=== PATIENT | male | born 1935 | race Asian ===

== ENCOUNTER 2022-10-15 09:33 | Outpatient (CLI) | payer MEDICARE, BC ==
[2022-10-15 11:13] LABS: #Monocytes 0.4 10x3/uL (0.0-1.1); #Neutrophils 5.6 10x3/uL (1.5-8.4); %Basophils 0.4 % (0.0-2.0); %Eosinophils 0.2 % (0.0-6.0); %Lymphocytes 27.3 % (18.0-47.0); %Monocytes 4.3 % (0.0-10.0); %Neutrophils 67.6 % (40.0-75.0); Hemoglobin 14.3 g/dL (13.5-17.5); Mean Corpuscular HGB CONC 33.3 g/dL (32.0-36.0); Mean Corpuscular Hemoglobin 31.2 pg (27.0-33.0); Mean Corpuscular Volume 93.7 fl (81.2-95.1); Mean Platelet Volume 8.8 fl (7.4-10.4); Platelet Count 214 10x3/uL (150-450); RBC Distribution Width 12.4 % (11.5-14.5); Red Blood Cell (RBC) Count 4.58 10x6/uL (4.32-5.72); White Blood Cell (WBC) Count 8.3 10x3/uL (3.5-10.5)
[2022-10-15 11:26] LABS: ALT (SGPT) 81 U/L (8-55); AST (SGOT) 41 U/L (5-34); Albumin 4.8 g/dL (3.4-4.8); Alkaline Phosphatase 56 U/L (40-110); Anion Gap 16 mmol/L (10-20); BUN (Urea Nitrogen) 17 mg/dL (8.4-25.7); Bilirubin, Total 1.3 mg/dL (0.2-1.2); Calc. Creatinine Clearance 0 mL/min (70-130); Calcium 9.6 mg/dL (7.8-10.44); Carbon Dioxide 24 mmol/L (23-31); Cardiac Risk 2.4 (Less than 4.5); Chloride 100 mmol/L (98-107); Cholesterol 174 mg/dl (< 200 Desired); Estimated GFR 69; Globulin 2.8 g/dL (2.4-3.5); Glucose 121 mg/dL (83-110); HDL Cholesterol 72 mg/dL (>60 Neg Risk); LDL Cholesterol, Calculated 89 mg/dL; Magnesium 2.2 mg/dL (1.6-2.6); Potassium 4.7 mmol/L (3.5-5.1); Protein, Total 7.6 g/dL (5.8-8.1); Sodium 135 mmol/L (136-145); Triglycerides 63 mg/dL (Less than 150)
[2022-10-15 14:14] LABS: Hemoglobin A1c 6.2 % (4.0-6.0)
== END 2022-10-15 09:34 | disposition home or self-care (01) ==
LOC: CSHLAB 09:33
PROVIDERS: ATTEND Surgery
DX: Z01.812 Encounter for preprocedural laboratory examination (principal); K40.90 Unilateral inguinal hernia, without obstruction or gangrene, not specified as recurrent; I25.10 Atherosclerotic heart disease of native coronary artery without angina pectoris
CPT/HCPCS: 80053; 80061; 82306; 83036; 83735; 84443; 85025

== ENCOUNTER 2022-10-16 05:50 | Day surgery (SDC) | payer MEDICARE, BC ==
[2022-10-14 15:16] VITALS: BMI 22.6
[2022-10-16] MEDS ORDERED: Bupivacaine HCl 0.5%/Epinephrine 1:200,000/PF 30 ml Vial ONE (06:52)
[2022-10-16] MEDS ORDERED: Rocuronium Bromide 10 MG/ML (10ML VIAL) ONE (07:08)
[2022-10-16] MEDS ORDERED: PROPOFOL 20 ML ONE (07:08)
[2022-10-16] MEDS ORDERED: Ondansetron PF 4 MG/2 ML Vial ONE (07:08)
[2022-10-16] MEDS ORDERED: Lidocaine 1% PF 5 ML VIAL ONE (07:08)
[2022-10-16] MEDS ORDERED: Fentanyl 100 MCG/2 ML VIAL ONE (07:08)
[2022-10-16] MEDS ORDERED: CEFAZOLIN 2 GM VIAL ONE (07:18)
[2022-10-16] MEDS ORDERED: Dexamethasone 4 mg/ml Vial ONE (07:49)
[2022-10-16] MEDS ORDERED: SUGAMMADEX SODIUM 200 MG/2 ML VIAL ONE (08:23)
[2022-10-16] MEDS ORDERED: HYDROcodone/Acetaminophen 5/325 mg Tablet PO PRN (08:26)
[2022-10-16] MEDS ORDERED: Acetaminophen 325 MG TAB PO PRN (08:26)
== END 2022-10-16 10:20 | disposition home or self-care (01) ==
LOC: CSHSDC 05:50
PROVIDERS: ATTEND Surgery
PROC: 0YU54JZ Supplement Right Inguinal Region with Synthetic Substitute, Percutaneous Endoscopic Approach (ICD-10-PCS; principal; 2022-10-16)
DX: K40.90 Unilateral inguinal hernia, without obstruction or gangrene, not specified as recurrent (principal); I25.10 Atherosclerotic heart disease of native coronary artery without angina pectoris; I10 Essential (primary) hypertension; E78.5 Hyperlipidemia, unspecified; Z79.899 Other long term (current) drug therapy; Z79.82 Long term (current) use of aspirin; Z95.1 Presence of aortocoronary bypass graft
CPT/HCPCS: C1713; J1100; J2405; J2704; J3010